=== PATIENT | male | born 1955 | race Two or more races ===

== ENCOUNTER → 2020-07-18 | Outpatient (CLI) | payer MEDICARE, OTHER ==
--- NOTE | 2020-07-18 17:16 | KCIC ---
EXAMINATION: MRI RIGHT SHOULDER WITHOUT IV CONTRAST CLINICAL HISTORY: Chronic right shoulder pain and decreased range of motion concerning for rotator cu ff tear. History of prostate cancer. TECHNIQUE: Multiplanar multisequential images obtained through the shoulder without intravenous contr ast. COMPARISON: None FINDINGS: TENDONS: - Supraspinatus: Mild tendinosis without discrete tear. - Infraspinatus: Mild tendinosis without discrete tear. - Subscapularis: High-grade partial-thickness articular sided tear in the superior fibers at the myot endinous junction. - Teres Minor: Intact. - Biceps Tendon: The long head biceps tendon is intact and appropriately located. MUSCLES: Muscle bulk and signal intensity are within normal limits. LABRUM: Labral degeneration and degenerative tearing in the superior labrum. GLENOHUMERAL JOINT: - Joint Fluid: Small joint effusion. - Cartilage: No full-thickness chondral defect. ACROMIOCLAVICULAR JOINT: Mild to moderate hypertrophic degenerative changes. BONES/MARROW: No evidence of acute fracture or suspicious marrow replacing process. OTHER: No other significant abnormality identified. IMPRESSION: High-grade partial-thickness subscapularis tendon tear and mild rotator cuff tendinosis. Electronically signed by: Fidel Harman DO (07/18/2020 5:13 PM) [id number]
== END ==
LOC: KCIC MRI 09:54
PROVIDERS: ATTEND Family Medicine
DX: M19.011 Primary osteoarthritis, right shoulder (principal); M75.101 Unspecified rotator cuff tear or rupture of right shoulder, not specified as traumatic
CPT/HCPCS: 73221